=== PATIENT | male | born 1975 | race Caucasian/White ===

== ENCOUNTER 2020-07-11 14:09 | Observation (INO) | payer BC ==
[2020-07-11] MEDS ORDERED: Ondansetron 4 MG/2 ML SDV IVPUSH ONE (14:28)
[2020-07-11] MEDS ORDERED: GI Cocktail Oral Solution 30 ML PO ONE ×2 (14:28→18:40)
[2020-07-11] MEDS ORDERED: LORazepam 2 MG/ML SDV IVPUSH ONE (14:28)
[2020-07-11] MEDS: Sodium Chloride 0.9% 10 ML Syringe FLUSH PRN ×3 (14:37→16:41)
[2020-07-11] MEDS ORDERED: Sodium Chloride 0.9% 1,000 ML IV ONE (14:48)
[2020-07-11 14:52] LABS: CHLORIDE,CL 102 mmol/L (98-107); SODIUM,NA 139 mmol/L (136-145)
[2020-07-11] MEDS ORDERED: Pantoprazole 40 MG Vial IVPUSH ONE (15:28)
[2020-07-11] MEDS ORDERED: Famotidine 20 MG/2 ML SDV IVPUSH ONE (15:28)
[2020-07-11] MEDS ORDERED: Ketorolac 30 MG/ML SDV IVPUSH PRN (16:00)
[2020-07-11] MEDS ORDERED: Ondansetron 4 MG/2 ML SDV IVPUSH PRN (16:00)
[2020-07-11] MEDS ORDERED: Acetaminophen 325 MG Tab PO PRN (16:00)
--- NOTE | 2020-07-11 16:10 | EDM.PDOC ---
ED HPI GENERAL MEDICAL PROBLEM - General Chief Complaint: Chest Pain Stated Complaint: Chest Pain Time Seen by Provider: 07/11/20 14:12 Source of Information: Reports: Patient, Family History Limitations: Reports: No Limitations - History of Present Illness INITIAL COMMENTS - FREE TEXT/NARRATIVE: Patient developed centralized chest pain at home shortly before coming to ER that was noted to be slightly to left of sternum. Also had feeling of heaviness that went across entire chest. Mild nausea. Pain worse with deep breath. No change with change in position/lifting arm. No history of previous similar pain in past other than 30 min episode stabbing discomfort last night. Denies cardiac history. Denies family history of [place]/cardiac disease. [place] fine earlier today and was having normal day prior to developing above complaints. Left sided chest pain has intermittent sharp pattern. Denies heavy lifting /injury recently. Has spaghetti and meatballs prior to developing pain around noon. Also had an argument with his but both patient and say it was not that severe of an argument. No fevers/chills/infectious symptoms. No HEENT changes such as RODR[place]GUEZ/vision change/Ear pain/ST/swollen nodes/stiff neck Resp negative for cough/wheeze/SOB CV negative for palpitations/syncope GI + for the nausea as noted above. No emesis/bowel changes/abdominal pain negative for dysuria/UTI complaints/blood in urine. Neuro negative for focal weakness or numbness. Patient is a daily user of ETOH. Often has a six pack of Maupin over a day. Did have a much larger quantity of beers yesterday due to the holiday. Also had Rum. Has history of heartburn/reflux in past. Also was given something for anxiety by a provider but never used it. Smokes 1/2PPD No drug use. Was given ASA by EMS. Also given Nitro--patient did not notice any improvement in chest pain with Nitro. - Related Data Allergies Allergy/AdvReac Type Severity Reaction Status Date / Time lorazepam [From Ativan] Allergy Dizziness Verified 07/11/20 14:52 Home Meds: Home Meds . [No Known Home Meds] 04/21/15 [History] Past Medical History Respiratory History: Reports: Other (See Below) (Smoker) Psychiatric History: Reports: Anxiety Social & Family History - Tobacco Use Smoking Status *Q: Current Every Day Smoker Packs/Tins Daily: 0.5 Smoking Cessation Information Provided To Patient: Patient Refused - Caffeine Use Caffeine Use: Reports: Soda (1-2 16ounce Cokes daily) - Alcohol Use Alcohol Use History: Yes Days Per Week of Alcohol Use Comment: Per patient likely averages 6 Buds a day, sometimes a lot more, sometimes less. Patient vague as to how much beer he drinks daily. Alcohol Use in Last Twelve Months: Yes - Recreational Drug Use Recreational Drug Use: No Drug Use in Last 12 Months: No ED ROS GENERAL - Review of Systems Review Of Systems: Comprehensive ROS is negative, except as noted in HPI. ED EXAM, GENERAL - Physical Exam Exam: See Below Exam Limited By: No Limitations General Appearance: WD/WN, Anxious, Mild Distress Eye Exam: Bilateral Eye: EOMI, PERRL Ears: Normal External Exam, Normal Canal, Hearing Grossly Normal Nose: No: Nasal Deformity, Nasal Swelling, Nasal Drainage Throat/Mouth: Normal Lips, Normal Voice, No Airway Compromise Head: Atraumatic, Normocephalic Neck: Normal Inspection, Supple, Non-Tender, Full Range of Motion Respiratory/Chest: No Respiratory Distress, Normal Breath Sounds, No Accessory Muscle Use, Wheezing (minimal/bilateral), Other (No pain with palpation around sternum. Did have some focal discomfort with palpation just inferior to left nipple that reproduced pain complaint. ). No: Crackles, Rales, Rhonchi, Stridor, Pleural Rub, Accessory Muscle Use, Retractions Cardiovascular: Regular Rate, Rhythm, No Edema, No Murmur GI/Abdominal: Normal Bowel Sounds, Soft, Non-Tender, No Distention (Male) Exam: Deferred Rectal (Males) Exam: Deferred Back Exam: No: CVA Tenderness (L), CVA Tenderness (R), Muscle Spasm Extremities: Normal Inspection, Normal Range of Motion, No Pedal Edema, Normal Capillary Refill Neurological: Alert, Oriented, CN II-XII Intact, Normal Cognition, Normal Gait, No Motor/Sensory Deficits Psychiatric: Normal Affect, Normal Mood Skin Exam: Warm, Dry, Intact, Normal Color EKG INTERPRETATION EKG Date: 07/11/20 Time: 14:07 Rhythm: NSR Rate (Beats/Min): [address] [place]: Normal P-Wave: Present QRS: Normal ST-T: Normal QT: Normal Comparison: NA - No Prior EKG Course - Vital Signs Last Recorded V/S: Last Vital Signs Temp 36.4 C 07/11/20 14:10 Pulse 90 07/11/20 14:10 Resp 17 07/11/20 14:10 BP 121/72 07/11/20 14:10 Pulse Ox 94 L 07/11/20 14:10 - Orders/Labs/Meds Orders: Active Orders 24 hr Category Date Time Status EKG Documentation Completion [RC] ASDIRECTED Care 07/11/20 14:27 Active Chest 2V [CR] Stat Exams 07/11/20 14:27 Taken UA W/MICROSCOPIC [URIN] Stat Lab 07/11/20 14:27 Ordered Sodium Chloride 0.9% [Saline Flush] Med 07/11/20 14:27 Active 10 ml FLUSH ASDIRECTED PRN Saline Lock Insert [OM.PC] Stat Oth 07/11/20 14:27 Ordered Medication Orders Acetaminophen (Tylenol) 650 mg PO Q4H PRN PRN Reason: Pain (Mild 1-3)/fever Famotidine (Pepcid) 20 mg IVPUSH ONETIME ONE Stop: 07/12/20 07:01 Ketorolac Tromethamine (Toradol) 30 mg IVPUSH Q6H PRN PRN Reason: Pain (moderate 4-6) Ondansetron HCl (Zofran) 4 mg IVPUSH Q4H PRN PRN Reason: Nausea/Vomiting Pantoprazole Sodium (Protonix Iv) 40 mg IVPUSH ONETIME ONE Stop: 07/12/20 07:01 Sodium Chloride (Saline Flush) 10 ml FLUSH ASDIRECTED PRN PRN Reason: Keep Vein Open Last Admin: 07/11/20 14:41 Dose: 10 ml Documented by: Admin: 07/11/20 14:37 Dose: 10 ml Documented by: JOES Labs: Laboratory Tests 07/11/20 07/11/20 07/11/20 Range/Units 14:25 14:25 14:25 WBC 11.7 H (4.0-10.2) K/uL RBC 5.75 H (4.33-5.41) M/uL Hgb 17.8 H (13.1-16.8) g/dL Hct 51.6 H (39.0-49.0) % MCV 89.7 (84.0-98.0) fL MCH 31.0 (28.2-33.3) pg MCHC 34.5 (31.7-36.0) g/dL RDW 14.1 (11.2-14.1) % Plt Count 225 (150-350) K/uL Neut % (Auto) 75.9 (45.0-80.0) % Lymph % (Auto) 14.2 (10.0-50.0) % [place] % (Auto) 8.6 (2.0-14.0) % Eos % (Auto) 1.0 (0.0-5.0) % Baso % (Auto) 0.3 (0.0-2.0) % Neut # (Auto) 8.84 H (1.40-7.00) K/uL Lymph # (Auto) 1.66 (0.50-3.50) K/uL [place] # (Auto) 1.00 (0.00-1.00) K/uL Eos # (Auto) 0.12 (0.00-0.50) K/uL Baso # (Auto) 0.04 (0.00-0.20) K/uL D-Dimer, Quantitative 183 (0-400) ng/mL Sodium 139 (136-145) mmol/L Potassium 3.8 (3.5-5.1) mmol/L Chloride 102 (98-107) mmol/L Carbon Dioxide 23.8 (21.0-32.0) mmol/L BUN 11 (7-18) mg/dL Creatinine 1.01 (0.51-1.17) mg/dL Est Cr Clr Drug Dosing TNP Estimated GFR (MDRD) > 60 mL/min Glucose 93 (74-106) mg/dL Lactic Acid (0.4-2.0) mmol/L Calcium 8.6 (8.5-10.1) mg/dL Magnesium 2.0 (1.8-2.4) mg/dL Total Bilirubin 0.5 (0.2-1.0) mg/dL AST 18 (15-37) U/L ALT 27 (12-78) U/L Alkaline Phosphatase 49 (46-116) IU/L Troponin I 0.000 (0.000-0.056) ng/mL NT-Pro-B Natriuret Pep 21 (0-125) pg/mL Total Protein 8.1 (6.4-8.2) g/dL Albumin 4.4 (3.4-5.0) g/dL Ethyl Alcohol 0.071 (0.000-0.080) g/dL 07/11/20 Range/Units 14:25 WBC (4.0-10.2) K/uL RBC (4.33-5.41) M/uL Hgb (13.1-16.8) g/dL Hct (39.0-49.0) % MCV (84.0-98.0) fL MCH (28.2-33.3) pg MCHC (31.7-36.0) g/dL RDW (11.2-14.1) % Plt Count (150-350) K/uL Neut % (Auto) (45.0-80.0) % Lymph % (Auto) (10.0-50.0) % [place] % (Auto) (2.0-14.0) % Eos % (Auto) (0.0-5.0) % Baso % (Auto) (0.0-2.0) % Neut # (Auto) (1.40-7.00) K/uL Lymph # (Auto) (0.50-3.50) K/uL [place] # (Auto) (0.00-1.00) K/uL Eos # (Auto) (0.00-0.50) K/uL Baso # (Auto) (0.00-0.20) K/uL D-Dimer, Quantitative (0-400) ng/mL Sodium (136-145) mmol/L Potassium (3.5-5.1) mmol/L Chloride (98-107) mmol/L Carbon Dioxide (21.0-32.0) mmol/L BUN (7-18) mg/dL Creatinine (0.51-1.17) mg/dL Est Cr Clr Drug Dosing Estimated GFR (MDRD) mL/min Glucose (74-106) mg/dL Lactic Acid 1.6 (0.4-2.0) mmol/L Calcium (8.5-10.1) mg/dL Magnesium (1.8-2.4) mg/dL Total Bilirubin (0.2-1.0) mg/dL AST (15-37) U/L ALT (12-78) U/L Alkaline Phosphatase (46-116) IU/L Troponin I (0.000-0.056) ng/mL NT-Pro-B Natriuret Pep (0-125) pg/mL Total Protein (6.4-8.2) g/dL Albumin (3.4-5.0) g/dL Ethyl Alcohol (0.000-0.080) g/dL Meds: Medications Generic Name Dose Route Start Last Admin Trade Name Freq PRN Reason Stop Dose Admin Acetaminophen 650 mg 07/11/20 15:57 Tylenol PO Q4H PRN Pain (Mild 1-3)/fever Famotidine 20 mg 07/12/20 07:00 Pepcid IVPUSH 07/12/20 07:01 ONETIME ONE Ketorolac Tromethamine 30 mg 07/11/20 15:57 Toradol IVPUSH Q6H PRN Pain (moderate 4-6) Ondansetron HCl 4 mg 07/11/20 15:57 Zofran IVPUSH Q4H PRN Nausea/Vomiting Pantoprazole Sodium 40 mg 07/12/20 07:00 Protonix Iv IVPUSH 07/12/20 07:01 ONETIME ONE Sodium Chloride 10 ml 07/11/20 14:27 07/11/20 14:41 Saline Flush FLUSH 10 ml ASDIRECTED PRN Administration Keep Vein Open Discontinued Medications Generic Name Dose Route Start Last Admin Trade Name [place] PRN Reason Stop Dose Admin Al Hydroxide/Mg Hydroxide 30 ml 07/11/20 14:28 07/11/20 14:35 Gi Cocktail PO 07/11/20 14:29 30 ml ONETIME ONE Administration Famotidine 20 mg 07/11/20 15:28 Pepcid IVPUSH 07/11/20 15:29 ONETIME ONE Sodium Chloride 1,000 mls @ 999 mls/hr 07/11/20 14:48 07/11/20 14:49 Normal Saline IV 07/11/20 15:48 999 mls/hr .BOLUS ONE Administration Lorazepam 0.5 mg 07/11/20 14:28 07/11/20 14:35 Ativan IVPUSH 07/11/20 14:29 0.5 mg ONETIME ONE Administration Ondansetron HCl 4 mg 07/11/20 14:28 07/11/20 14:41 Zofran IVPUSH 07/11/20 14:29 4 mg ONETIME ONE Administration Pantoprazole Sodium 40 mg 07/11/20 15:28 Protonix Iv IVPUSH 07/11/20 15:29 ONETIME ONE - Radiology Interpretation Free Text/Narrative:: Chest xray shows no effusion/pneumothorax/focal consolidation. Pending Radiology review. Cardiac size appears slightly enlarged. - Re-Assessments/Exams Free Text/Narrative Re-Assessment/Exam: 07/11/20 16:18 Patient had no improvement with pain s/p Nitro given by EMS. He did have significant improvement of pain after GI cocktail. Eventually improvement wore off. He did receive IV Protonix and Pepcid. WBC mildly elevated. No focal infection identified during history/evaluation. Suspect demargination due to pain/stress/anxiety. Elevated Hgb/Hct suspect due to smoking history and may have dehydration component from patient's use of ETOH yesterday. It was noted that patient's blood alcohol was 0.07 and this was reviewed with him. He does not report drinking ETOH today. Troponin negative. EKG showed no acute changes. DDimer/Lactic acid/ProBNP normal. LFTs and Mg normal. Suspect chest pain complaint may be caused by GI etiology given patient's history of GERD/heavy use of ETOH yesterday/improvement of symptoms after GI cocktail. Cannot rule out musc/skel component given partial reproducibility by chest palpation. No focal lung changed noted on xray/pending RAdiology review. Will admit observation to more thoroughly rule out cardiac contribution/[place]. Telemetry/repeat Troponins/EKG ordered. Patient was given single dose of Ativan early in stay due to high anxiety levels about chest pain/IVs/blood draws. He did not like how the Ativan made him feel. He described feeling jumpy, and had some muscle twitching. Medication was added to his list of allergies. Zofran given for nausea. Departure - Departure Time of Disposition: 15:45 Disposition: Refer to Observation Condition: Good Clinical Impression: Chest pain Qualifiers: Chest pain type: unspecified Qualified Code(s): R07.9 - Chest pain, unspecified - Discharge Information Sepsis Event Note (ED) - Evaluation Sepsis Screening Result: No Definite Risk - Focused Exam Vital Signs: Vital Signs Temp Pulse Resp BP Pulse Ox 07/11/20 14:10 36.4 C 90 17 121/72 94 L - Problem List & Annotations (1) Chest pain SNOMED Code(s): 41601821 Code(s): R07.9 - CHEST PAIN, UNSPECIFIED Status: Acute Priority: High Current Visit: Yes Annotation/Comment:: Negative initial Troponin. No acute changes on EKG. Current history/pattern more suggestive of GI etiology. Will continue telemetry and repeat Troponins at 2000 tonight and in the morning. Qualifiers: Chest pain type: unspecified Qualified Code(s): R07.9 - Chest pain, unspecified (2) Anxiety SNOMED Code(s): 35742831 Code(s): F41.9 - ANXIETY DISORDER, UNSPECIFIED Status: Chronic Priority: Medium Current Visit: Yes Annotation/Comment:: Currently not under medical therapy. (3) Elevated ETOH level SNOMED Code(s): 963813833 Code(s): R78.0 - FINDING OF ALCOHOL IN BLOOD Status: Acute Priority: Medium Current Visit: Yes Annotation/Comment:: 0.07 ETOH level today. Patient admits to drinking beer daily. Encouraged to cut down and educated on effects of ETOH use on stomach/esophagus. Patient denies DTs/withdrawal symptoms when he does not drink. Qualifiers: Blood alcohol level: level not specified Qualified Code(s): R78.0 - Finding of alcohol in blood (4) GERD (gastroesophageal reflux disease) SNOMED Code(s): 591093461 Code(s): K21.9 - GASTRO-ESOPHAGEAL REFLUX DISEASE WITHOUT ESOPHAGITIS Status: Chronic Priority: High Current Visit: Yes Annotation/Comment:: History of heartburn/GERD. Takes Prevacid at home. Received IV Protonix and Pepcid in ER. Suspect heavy ETOH over holiday weekend may have triggered exacerbation. Qualifiers: Esophagitis presence: esophagitis presence not specified Qualified Code(s): K21.9 - Gastro-esophageal reflux disease without esophagitis - Problem List Review Problem List Initiated/Reviewed/Updated: Yes - My Orders Last 24 Hours: My Active Orders 07/11/20 14:27 EKG Documentation Completion [RC] ASDIRECTED Chest 2V [CR] Stat UA W/MICROSCOPIC [URIN] Stat Sodium Chloride 0.9% [Saline Flush] 10 ml FLUSH ASDIRECTED PRN Saline Lock Insert [OM.PC] Stat - Assessment/Plan Admission H&P: Please use this note as an admission H&P Last 24 Hours: My Active Orders 07/11/20 14:27 EKG Documentation Completion [RC] ASDIRECTED Chest 2V [CR] Stat UA W/MICROSCOPIC [URIN] Stat Sodium Chloride 0.9% [Saline Flush] 10 ml FLUSH ASDIRECTED PRN Saline Lock Insert [OM.PC] Stat Assessment:: as above. Stable and suitable for general supervision. Plan: as above. Anticipate discharge home tomorrow if pain improves and has unremarkable stay/labs.
[2020-07-11] MEDS ORDERED: Nicotine 21 MG/24 Hr Patch TRDERM ONE ×2 (17:32→19:00)
[2020-07-11] MEDS ORDERED: Morphine 2 MG/ML SYRINGE IVPUSH PRN ×2 (18:42→18:44)
[2020-07-11] MEDS ORDERED: Fluticasone Propionate Nasal Spray 16 GM Bottle NASBOTH SCH (20:00)
[2020-07-11 20:17] VITALS: BP 133/89; PULSE 77
--- NOTE | 2020-07-11 20:35 | PCM.DCSUM1 ---
Discharge Summary - Hospital Course Brief History: Admitted for observation and serial troponins/rule-out [place] due to left sided chest pain. Diagnosis: Stroke: No - Discharge Data Discharge Date: 07/11/20 Discharge Disposition: DC/Tfer to Acute Hospital 02 Condition: Good - Referral to Home Health Primary Care Physician: Anh Pepper PA-C - Discharge Diagnosis/Problem(s) (1) Chest pain SNOMED Code(s): 80068191 ICD Code: R07.9 - CHEST PAIN, UNSPECIFIED Status: Acute Priority: High Current Visit: Yes Problem Details: Negative Troponins in ER and 1900 . No acute changes on EKG in ER. 1900 EKG showed new nonspecific changes that were subsequently reviewed with from [facility]. He also felt that changes were nonspecific but offered to take the patient for further evaluation with plans for stress test tomorrow. Differential includes gastritis/GI etiology from ETOH use over the weekend and yesterday. Qualifiers: Chest pain type: unspecified Qualified Code(s): R07.9 - Chest pain, unspecified (2) GERD (gastroesophageal reflux disease) SNOMED Code(s): 314015992 ICD Code: K21.9 - GASTRO-ESOPHAGEAL REFLUX DISEASE WITHOUT ESOPHAGITIS Status: Chronic Priority: High Current Visit: Yes Problem Details: History of heartburn/GERD. Takes Prevacid at home. Received IV Protonix and Pepcid in ER. Suspect heavy ETOH over holiday weekend may have triggered exacerbation. H.Pylori and stool for occult blood ordered but patient did not provide sample prior to transfer. Qualifiers: Esophagitis presence: esophagitis presence not specified Qualified Code(s): K21.9 - Gastro-esophageal reflux disease without esophagitis (3) Elevated ETOH level SNOMED Code(s): 636556662 ICD Code: R78.0 - FINDING OF ALCOHOL IN BLOOD Status: Acute Priority: Medium Current Visit: Yes Problem Details: 0.07 ETOH level today in ER. Patient admits to drinking beer daily. LFTs normal. Encouraged to cut down and educated on effects of ETOH use on stomach/esophagus. Patient denies DTs/withdrawal symptoms when he does not drink. Qualifiers: Blood alcohol level: level not specified Qualified Code(s): R78.0 - Finding of alcohol in blood (4) Anxiety SNOMED Code(s): 63200372 ICD Code: F41.9 - ANXIETY DISORDER, UNSPECIFIED Status: Chronic Priority: Medium Current Visit: Yes Problem Details: Currently not under medical therapy. - Patient Summary/Data Hospital Course: Patient continued to note pain present left lower anterior chest. Improved with the GI cocktail in ER. Gradually came back. Also noted continued intermittent stabbing feeling to the patient. Pressing on chest wall sometimes reproduced p ain complaint. Toradol did not appear to be helpful. Patient did not want additional IV meds for the pain/Nitro but eventually was ok with having another GI cocktail. Second GI cocktail also improved pain complaint. PRN MS ordered. Patient refused additional IV fluids. Troponin at 1900 negative. EKG showed nonspecific changes throughout. Call placed to [facility] and patient discussed with . He also felt that EKG changes were nonspecific. He did offer to have patient transferred to their facility to complete the rule out and have stress testing performed tomorrow morning for a more complete rule out. This was offered to the patient. Patient and elected for transfer to [facility]. Patient officially accepted by , Hospitalist. Patient to be transferred by EMS once bed confirmed to be available. Vital signs stable throughout stay. Telemetry unremarkable overall. - Discharge Plan Home Medications: Home Meds Fluticasone Propionate 1 sprays NASBOTH BEDTIME 07/11/20 [History] Lansoprazole [Prevacid] 30 mg PO BID@1200,2000 07/11/20 [History] Montelukast Sodium [Singulair] 10 mg PO BEDTIME 07/11/20 [History] Forms: ED Department Discharge Referrals: Anh Pepper PA-C [Primary Care Provider] - - Discharge Summary/Plan Comment DC Time >30 min.: Yes (Waiting for bed confirmation from [facility]) - Patient Data Vitals - Most Recent: Last Vital Signs Temp 37.7 C 07/11/20 20:00 Pulse 77 07/11/20 20:00 Resp 16 07/11/20 20:00 BP 133/89 07/11/20 20:00 Pulse Ox 97 07/11/20 20:00 Weight - Most Recent: 107.91 kg Lab Results - Last 24 hrs: Laboratory Results - last 24 hr 07/11/20 07/11/20 07/11/20 Range/Units 14:25 14:25 14:25 WBC 11.7 H (4.0-10.2) K/uL RBC 5.75 H (4.33-5.41) M/uL Hgb 17.8 H (13.1-16.8) g/dL Hct 51.6 H (39.0-49.0) % MCV 89.7 (84.0-98.0) fL MCH 31.0 (28.2-33.3) pg MCHC 34.5 (31.7-36.0) g/dL RDW 14.1 (11.2-14.1) % Plt Count 225 (150-350) K/uL Neut % (Auto) 75.9 (45.0-80.0) % Lymph % (Auto) 14.2 (10.0-50.0) % [place] % (Auto) 8.6 (2.0-14.0) % Eos % (Auto) 1.0 (0.0-5.0) % Baso % (Auto) 0.3 (0.0-2.0) % Neut # (Auto) 8.84 H (1.40-7.00) K/uL Lymph # (Auto) 1.66 (0.50-3.50) K/uL [place] # (Auto) 1.00 (0.00-1.00) K/uL Eos # (Auto) 0.12 (0.00-0.50) K/uL Baso # (Auto) 0.04 (0.00-0.20) K/uL D-Dimer, Quantitative 183 (0-400) ng/mL Sodium 139 (136-145) mmol/L Potassium 3.8 (3.5-5.1) mmol/L Chloride 102 (98-107) mmol/L Carbon Dioxide 23.8 (21.0-32.0) mmol/L BUN 11 (7-18) mg/dL Creatinine 1.01 (0.51-1.17) mg/dL Est Cr Clr Drug Dosing TNP Estimated GFR (MDRD) > 60 mL/min Glucose 93 (74-106) mg/dL Lactic Acid (0.4-2.0) mmol/L Calcium 8.6 (8.5-10.1) mg/dL Magnesium 2.0 (1.8-2.4) mg/dL Total Bilirubin 0.5 (0.2-1.0) mg/dL AST 18 (15-37) U/L ALT 27 (12-78) U/L Alkaline Phosphatase 49 (46-116) IU/L Troponin I 0.000 (0.000-0.056) ng/mL NT-Pro-B Natriuret Pep 21 (0-125) pg/mL Total Protein 8.1 (6.4-8.2) g/dL Albumin 4.4 (3.4-5.0) g/dL Amylase (25-115) U/L Lipase (73-393) U/L Specimen Type Urine Color Urine Appearance Urine pH (5.0-9.0) Ur Specific [place] (1.005-1.030) Urine Protein (NEGATIVE) mg/dL Urine Glucose (UA) (NEGATIVE) mg/dL Urine Ketones (NEGATIVE) mg/dL Urine Occult Blood (NEGATIVE) Urine Nitrite (NEGATIVE) Urine Bilirubin (NEGATIVE) Urine Urobilinogen (0.2-1.0) E.U./dL Ur Leukocyte Esterase (NEGATIVE) U Hyaline Cast (Auto) Urine RBC /HPF Urine WBC /HPF Ur Epithelial Cells /LPF Urine Bacteria (NONE TO FEW) /HPF Urine Mucus (NEGATIVE) /LPF Ethyl Alcohol 0.071 (0.000-0.080) g/dL 07/11/20 07/11/20 07/11/20 Range/Units 14:25 14:25 17:40 WBC (4.0-10.2) K/uL RBC (4.33-5.41) M/uL Hgb (13.1-16.8) g/dL Hct (39.0-49.0) % MCV (84.0-98.0) fL MCH (28.2-33.3) pg MCHC (31.7-36.0) g/dL RDW (11.2-14.1) % Plt Count (150-350) K/uL Neut % (Auto) (45.0-80.0) % Lymph % (Auto) (10.0-50.0) % [place] % (Auto) (2.0-14.0) % Eos % (Auto) (0.0-5.0) % Baso % (Auto) (0.0-2.0) % Neut # (Auto) (1.40-7.00) K/uL Lymph # (Auto) (0.50-3.50) K/uL [place] # (Auto) (0.00-1.00) K/uL Eos # (Auto) (0.00-0.50) K/uL Baso # (Auto) (0.00-0.20) K/uL D-Dimer, Quantitative (0-400) ng/mL Sodium (136-145) mmol/L Potassium (3.5-5.1) mmol/L Chloride (98-107) mmol/L Carbon Dioxide (21.0-32.0) mmol/L BUN (7-18) mg/dL Creatinine (0.51-1.17) mg/dL Est Cr Clr Drug Dosing Estimated GFR (MDRD) mL/min Glucose (74-106) mg/dL Lactic Acid 1.6 (0.4-2.0) mmol/L Calcium (8.5-10.1) mg/dL Magnesium (1.8-2.4) mg/dL Total Bilirubin (0.2-1.0) mg/dL AST (15-37) U/L ALT (12-78) U/L Alkaline Phosphatase (46-116) IU/L Troponin I (0.000-0.056) ng/mL NT-Pro-B Natriuret Pep (0-125) pg/mL Total Protein (6.4-8.2) g/dL Albumin (3.4-5.0) g/dL Amylase 90 (25-115) U/L Lipase 175 (73-393) U/L Specimen Type Urinblad Urine Color Dark yellow Urine Appearance Clear Urine pH 5.5 (5.0-9.0) Ur Specific [place] 1.025 (1.005-1.030) Urine Protein Negative (NEGATIVE) mg/dL Urine Glucose (UA) Negative (NEGATIVE) mg/dL Urine Ketones Trace H (NEGATIVE) mg/dL Urine Occult Blood Negative (NEGATIVE) Urine Nitrite Negative (NEGATIVE) Urine Bilirubin Negative (NEGATIVE) Urine Urobilinogen 0.2 (0.2-1.0) E.U./dL Ur Leukocyte Esterase Negative (NEGATIVE) U Hyaline Cast (Auto) Few Urine RBC 0-5 /HPF Urine WBC 0-5 /HPF Ur Epithelial Cells Few /LPF Urine Bacteria Rare (NONE TO FEW) /HPF Urine Mucus Moderate H (NEGATIVE) /LPF Ethyl Alcohol (0.000-0.080) g/dL 07/11/20 Range/Units 19:05 WBC (4.0-10.2) K/uL RBC (4.33-5.41) M/uL Hgb (13.1-16.8) g/dL Hct (39.0-49.0) % MCV (84.0-98.0) fL MCH (28.2-33.3) pg MCHC (31.7-36.0) g/dL RDW (11.2-14.1) % Plt Count (150-350) K/uL Neut % (Auto) (45.0-80.0) % Lymph % (Auto) (10.0-50.0) % [place] % (Auto) (2.0-14.0) % Eos % (Auto) (0.0-5.0) % Baso % (Auto) (0.0-2.0) % Neut # (Auto) (1.40-7.00) K/uL Lymph # (Auto) (0.50-3.50) K/uL [place] # (Auto) (0.00-1.00) K/uL Eos # (Auto) (0.00-0.50) K/uL Baso # (Auto) (0.00-0.20) K/uL D-Dimer, Quantitative (0-400) ng/mL Sodium (136-145) mmol/L Potassium (3.5-5.1) mmol/L Chloride (98-107) mmol/L Carbon Dioxide (21.0-32.0) mmol/L BUN (7-18) mg/dL Creatinine (0.51-1.17) mg/dL Est Cr Clr Drug Dosing Estimated GFR (MDRD) mL/min Glucose (74-106) mg/dL Lactic Acid (0.4-2.0) mmol/L Calcium (8.5-10.1) mg/dL Magnesium (1.8-2.4) mg/dL Total Bilirubin (0.2-1.0) mg/dL AST (15-37) U/L ALT (12-78) U/L Alkaline Phosphatase (46-116) IU/L Troponin I 0.000 (0.000-0.056) ng/mL NT-Pro-B Natriuret Pep (0-125) pg/mL Total Protein (6.4-8.2) g/dL Albumin (3.4-5.0) g/dL Amylase (25-115) U/L Lipase (73-393) U/L Specimen Type Urine Color Urine Appearance Urine pH (5.0-9.0) Ur Specific [place] (1.005-1.030) Urine Protein (NEGATIVE) mg/dL Urine Glucose (UA) (NEGATIVE) mg/dL Urine Ketones (NEGATIVE) mg/dL Urine Occult Blood (NEGATIVE) Urine Nitrite (NEGATIVE) Urine Bilirubin (NEGATIVE) Urine Urobilinogen (0.2-1.0) E.U./dL Ur Leukocyte Esterase (NEGATIVE) U Hyaline Cast (Auto) Urine RBC /HPF Urine WBC /HPF Ur Epithelial Cells /LPF Urine Bacteria (NONE TO FEW) /HPF Urine Mucus (NEGATIVE) /LPF Ethyl Alcohol (0.000-0.080) g/dL Med Orders - Current: Current Medications Acetaminophen (Tylenol) 650 mg PO Q4H PRN PRN Reason: Pain (Mild 1-3)/fever Diazepam (Valium.) 5 mg PO ONETIME ONE Stop: 07/11/20 22:01 Diphenhydramine HCl (Benadryl) 50 mg IVPUSH ONETIME ONE Stop: 07/11/20 22:01 Famotidine (Pepcid) 20 mg IVPUSH ONETIME ONE Stop: 07/12/20 07:01 Fluticasone Propionate (Flonase) 0 gm NASBOTH BEDTIME ARLETTE Last Admin: 07/11/20 19:21 Dose: 1 applic Documented by: Ketorolac Tromethamine (Toradol) 30 mg IVPUSH Q6H PRN PRN Reason: Pain (moderate 4-6) Last Admin: 07/11/20 16:39 Dose: 30 mg Documented by: Morphine Sulfate (Morphine) 2 mg IVPUSH Q2H PRN PRN Reason: Pain Ondansetron HCl (Zofran) 4 mg IVPUSH Q4H PRN PRN Reason: Nausea/Vomiting Pantoprazole Sodium (Protonix Iv) 40 mg IVPUSH ONETIME ONE Stop: 07/12/20 07:01 Sodium Chloride (Saline Flush) 10 ml FLUSH ASDIRECTED PRN PRN Reason: Keep Vein Open Last Admin: 07/11/20 16:41 Dose: 10 ml Documented by: Discontinued Medications Al Hydroxide/Mg Hydroxide (Gi Cocktail) 30 ml PO ONETIME ONE Stop: 07/11/20 14:29 Last Admin: 07/11/20 14:35 Dose: 30 ml Documented by: Al Hydroxide/Mg Hydroxide (Gi Cocktail) 30 ml PO ONETIME ONE Stop: 07/11/20 18:41 Famotidine (Pepcid) 20 mg IVPUSH ONETIME ONE Stop: 07/11/20 15:29 Last Admin: 07/11/20 16:39 Dose: 20 mg Documented by: Sodium Chloride (Normal Saline) 1,000 mls @ 999 mls/hr IV .BOLUS ONE Stop: 07/11/20 15:48 Last Admin: 07/11/20 14:49 Dose: 999 mls/hr Documented by: Lorazepam (Ativan) 0.5 mg IVPUSH ONETIME ONE Stop: 07/11/20 14:29 Last Admin: 07/11/20 14:35 Dose: 0.5 mg Documented by: Morphine Sulfate (Morphine) 2 mg IVPUSH Q1H PRN PRN Reason: Pain Nicotine (Habitrol) 21 mg TRDERM ONETIME ONE Stop: 07/11/20 17:33 Last Admin: 07/11/20 18:33 Dose: Not Given Documented by: Nicotine (Habitrol) 21 mg TRDERM ONETIME ONE Stop: 07/11/20 19:01 Last Admin: 07/11/20 19:20 Dose: 21 mg Documented by: Ondansetron HCl (Zofran) 4 mg IVPUSH ONETIME ONE Stop: 07/11/20 14:29 Last Admin: 07/11/20 14:41 Dose: 4 mg Documented by: Pantoprazole Sodium (Protonix Iv) 40 mg IVPUSH ONETIME ONE Stop: 07/11/20 15:29 Last Admin: 07/11/20 16:39 Dose: 40 mg Documented by:
[2020-07-11] MEDS ORDERED: diphenhydrAMINE 50 MG/ML SDV IVPUSH ONE (22:00)
[2020-07-11] MEDS ORDERED: Diazepam 5 MG Tab PO ONE (22:00)
[2020-07-12] MEDS ORDERED: Pantoprazole 40 MG Vial IVPUSH ONE (07:00)
[2020-07-12] MEDS ORDERED: Famotidine 20 MG/2 ML SDV IVPUSH ONE (07:00)
== END 2020-07-11 21:30 ==
LOC: LL.ED 14:09 → UNDOADMOB 15:51 → LL.MS 15:51
PROVIDERS: ADMIT Emergency Medicine; ATTEND Emergency Medicine
DX: R07.2 Precordial pain (principal); F41.9 Anxiety disorder, unspecified; R78.0 Finding of alcohol in blood; K21.9 Gastro-esophageal reflux disease without esophagitis; F17.210 Nicotine dependence, cigarettes, uncomplicated; Z79.899 Other long term (current) drug therapy
CPT/HCPCS: 36415; 71046; 80053; 80307; 81001; 82150; 83605; 83690; 83735; 83880; 84484; 85025; 85379; 93005; 96361; 96374; 96375; 99285-25; A9270-GY; C9113; G0378; J1885; J2060; J2405; J3490; J7030

== ENCOUNTER 2021-04-03 11:38 | Emergency (ER) | payer BC ==
--- NOTE | 2021-04-03 12:32 | EDM.PDOC ---
ED HPI GENERAL MEDICAL PROBLEM - General Chief Complaint: General Stated Complaint: tingling in all extremities post COVID vaccine Time Seen by Provider: 04/03/21 11:46 Source of Information: Reports: Patient History Limitations: Reports: No Limitations - History of Present Illness INITIAL COMMENTS - FREE TEXT/NARRATIVE: Patient comes to ER complaining of lightheadedness/peripheral tingling/feeling like he is going to pass out within 30 min of receiving covid vaccine. Was feeling fine prior to this. - Related Data Allergies Allergy/AdvReac Type Severity Reaction Status Date / Time lorazepam [From Ativan] Allergy Dizziness Verified 04/03/21 12:02 Home Meds: Home Meds Fluticasone Propionate 1 sprays NASBOTH BEDTIME 07/11/20 [History] Lansoprazole [Prevacid] 30 mg PO BID@1200,2000 07/11/20 [History] Montelukast Sodium [Singulair] 10 mg PO BEDTIME 07/11/20 [History] Sertraline HCl 50 mg PO DAILY 04/03/21 [History] busPIRone HCl [Buspirone HCl] 7.5 mg PO ASDIRECTED 04/03/21 [History] Past Medical History Respiratory History: Reports: Other (See Below) (Smoker) Psychiatric History: Reports: Anxiety Social & Family History - Tobacco Use Tobacco Use Status *Q: Current Every Day Tobacco User Years of Tobacco use: 20 Packs/Tins Daily: 0.7 Month/Year Tobacco Last Used: 04-03-2021 Second Hand Smoke Exposure: Yes - Caffeine Use Caffeine Use: Reports: Soda Caffeine Use Comment: pop - probably 3-5 can per day - Alcohol Use Days Per Week of Alcohol Use: 0 - Recreational Drug Use Recreational Drug Use: No ED ROS GENERAL - Review of Systems Review Of Systems: See Below Constitutional: Reports: No Symptoms HEENT: Denies: Rhinitis, Sinus Problem, Throat Pain, Throat Swelling, Vision Change Respiratory: Reports: No Symptoms Cardiovascular: Reports: Lightheadedness. Denies: Chest Pain, Dyspnea on Exertion, Orthopnea, Palpitations GI/Abdominal: Reports: No Symptoms : Reports: No Symptoms Musculoskeletal: Reports: No Symptoms Skin: Reports: No Symptoms. Denies: Pruritis, Rash, Erythema Neurological: Reports: Other (tingling in arms/legs) Psychiatric: Reports: Anxiety Hematologic/Lymphatic: Reports: No Symptoms Immunologic: Reports: No Symptoms ED EXAM, GENERAL - Physical Exam Exam: See Below Exam Limited By: No Limitations General Appearance: Alert, No Apparent Distress, Anxious Eye Exam: Bilateral Eye: EOMI, PERRL Ears: Hearing Grossly Normal Nose: No: Nasal Deformity, Nasal Swelling, Nasal Drainage Throat/Mouth: Normal Lips, Normal Voice, No Airway Compromise Head: Atraumatic, Normocephalic. No: Facial Swelling Neck: Normal Inspection, Supple, Non-Tender, Full Range of Motion Respiratory/Chest: No Respiratory Distress, Lungs Clear, Normal Breath Sounds, No Accessory Muscle Use Cardiovascular: Regular Rate, Rhythm, No Murmur GI/Abdominal: Normal Bowel Sounds, Soft, Non-Tender, No Distention (Male) Exam: Deferred Rectal (Males) Exam: Deferred Back Exam: Normal Inspection Extremities: Normal Inspection, Normal Range of Motion, Non-Tender, No Pedal Edema, Normal Capillary Refill Neurological: Alert, Oriented, CN II-XII Intact, Normal Cognition, Normal Gait, No Motor/Sensory Deficits Psychiatric: Anxious Skin Exam: Warm, Dry, Intact, Normal Color #1 Interpretation EKG Date: 04/03/21 Time: 12:05 Rhythm: Other (Sinus Bradycardia) Rate (Beats/Min): 53 [place]: Normal P-Wave: Present QRS: Normal ST-T: Normal QT: Normal Course - Vital Signs Last Recorded V/S: Last Vital Signs Temp 35.9 C L 04/03/21 11:48 Pulse 63 04/03/21 11:48 Resp 16 04/03/21 11:48 BP 133/84 04/03/21 11:48 Pulse Ox 100 04/03/21 11:48 - Orders/Labs/Meds Orders: Active Orders 24 hr Category Date Time Status EKG Documentation Completion [RC] ASDIRECTED Care 04/03/21 12:04 Active Labs: Laboratory Tests 04/03/21 04/03/21 Range/Units 12:15 12:15 WBC 5.6 (4.0-10.2) K/uL RBC 5.28 (4.33-5.41) M/uL Hgb 16.3 D (13.1-16.8) g/dL Hct 46.8 (39.0-49.0) % MCV 88.6 (84.0-98.0) fL MCH 30.9 (28.2-33.3) pg MCHC 34.8 (31.7-36.0) g/dL RDW 12.9 (11.2-14.1) % Plt Count 195 (150-350) K/uL Neut % (Auto) 59.5 (45.0-80.0) % Lymph % (Auto) 26.1 (10.0-50.0) % [place] % (Auto) 11.6 (2.0-14.0) % Eos % (Auto) 2.1 (0.0-5.0) % Baso % (Auto) 0.7 (0.0-2.0) % Neut # (Auto) 3.33 (1.40-7.00) K/uL Lymph # (Auto) 1.46 (0.50-3.50) K/uL [place] # (Auto) 0.65 (0.00-1.00) K/uL Eos # (Auto) 0.12 (0.00-0.50) K/uL Baso # (Auto) 0.04 (0.00-0.20) K/uL Sodium 136 (136-145) mmol/L Potassium 3.9 (3.5-5.1) mmol/L Chloride 101 (98-107) mmol/L Carbon Dioxide 23.8 (21.0-32.0) mmol/L BUN 19 H (7-18) mg/dL Creatinine 0.95 (0.51-1.17) mg/dL Est Cr Clr Drug Dosing 115.37 mL/min Estimated GFR (MDRD) > 60 mL/min Glucose 91 (70-99) mg/dL Calcium 8.9 (8.5-10.1) mg/dL Magnesium 1.8 (1.8-2.4) mg/dL Total Bilirubin 0.7 (0.2-1.0) mg/dL AST 12 L (15-37) U/L ALT 24 (12-78) U/L Alkaline Phosphatase 60 (46-116) IU/L Total Protein 7.4 (6.4-8.2) g/dL Albumin 4.3 (3.4-5.0) g/dL - Re-Assessments/Exams Free Text/Narrative Re-Assessment/Exam: 04/03/21 12:31 Patient will be observed in ER. No focal findings on exam. Baseline labs drawn. Suspect anxiety may be causing patient's complaints. Free Text/Narrative Re-Assessment/Exam: 04/03/21 14:19 Patient observed for several hours. Labs normal. Symptoms improved over that time frame. Was not consistent with an allergic reaction. May have been stress/anxiety response given that symptoms started almost immediately after he received the injection. Cannot rule out other etiology however. Encouraged patient to report it to the vaccine adverse reaction website. Precautions reviewed. To observe for additional changes and follow up as needed if any new problems/concerns develop. Departure - Departure Time of Disposition: 13:57 Disposition: Home, Self-Care 01 Condition: Good Clinical Impression: Does not feel right - Discharge Information *PRESCRIPTION DRUG MONITORING PROGRAM REVIEWED*: Not Applicable *COPY OF PRESCRIPTION DRUG MONITORING REPORT IN PATIENT RUFUS: Not Applicable Referrals: Ashley Mehta NP [Primary Care Provider] - Forms: ED Department Discharge Additional Instructions: Take it easy today. See how you feel and if there are any additional changes. Stay hydrated. Return if you start to have additional changes/problems. Sepsis Event Note (ED) - Evaluation Sepsis Screening Result: No Definite Risk - Focused Exam Vital Signs: Vital Signs Temp Pulse Resp BP Pulse Ox 04/03/21 11:48 35.9 C L 63 16 133/84 100 - My Orders Last 24 Hours: My Active Orders 04/03/21 12:04 EKG Documentation Completion [RC] ASDIRECTED - Assessment/Plan Last 24 Hours: My Active Orders 04/03/21 12:04 EKG Documentation Completion [RC] ASDIRECTED
[2021-04-03 12:35] LABS: CHLORIDE,CL 101 mmol/L (98-107); SODIUM,NA 136 mmol/L (136-145)
[2021-04-03 14:40] VITALS: BP 135/94; PULSE 57
== END 2021-04-03 14:15 | disposition home or self-care (01) ==
LOC: LL.ED 11:38
DX: R42 Dizziness and giddiness (principal); Z72.0 Tobacco use
CPT/HCPCS: 36415; 80053; 83735; 85025; 93005; 93010; 99283-25; 99284